=== PATIENT | female | born 2005 | race African-American/Black ===

== ENCOUNTER 2024-05-11 12:10 | Emergency (ER) | payer MEDICAID | END 2024-05-11 13:30 | disposition home or self-care (01) | LOC: ERS 12:10 | DX: L30.9 Dermatitis, unspecified (principal); Z75.3 Unavailability and inaccessibility of health-care facilities | CPT/HCPCS: 99282 ==

== ENCOUNTER 2024-06-29 16:41 | Emergency (ER) | payer MEDICAID ==
[2024-06-29] MEDS ORDERED: diphenhydrAMINE 25 MG CAP ONE (19:29)
[2024-06-29] MEDS ORDERED: Famotidine 20 MG TAB ONE (19:30)
[2024-06-29] MEDS ORDERED: predniSONE 20 MG TAB ONE (19:30)
== END 2024-06-29 20:13 | disposition home or self-care (01) ==
LOC: ERS 16:41
DX: R21 Rash and other nonspecific skin eruption (principal)
CPT/HCPCS: 99283; J7512

== ENCOUNTER 2024-08-17 12:26 | Emergency (ER) | payer MEDICAID | END 2024-08-17 13:16 | disposition home or self-care (01) | LOC: ERS 12:26 | DX: H01.001 Unspecified blepharitis right upper eyelid (principal) | CPT/HCPCS: 99282 ==

== ENCOUNTER 2025-04-13 23:08 | Emergency (ER) | payer MEDICAID | END 2025-04-13 23:10 | disposition home or self-care (01) | LOC: ERS 23:08 | DX: B34.9 Viral infection, unspecified (principal) | CPT/HCPCS: 87081; 87428; 87430; 99283 ==